=== PATIENT | female | born 1965 | race Caucasian/White ===

== ENCOUNTER 2017-09-02 16:42 | Emergency (ER) | payer OTHER ==
[2017-09-02 16:42] VITALS: BMI 23.6
[2017-09-02 16:57] VITALS: BP 104/65; PULSE 62; RESP 16; TEMP 98.3; O2SAT 100
[2017-09-02] MEDS ORDERED: Naproxen 500 MG TAB PO STA (17:26)
--- NOTE | 2017-09-02 17:41 | ED PDOC ---
HPI: General Adult Time Seen by Provider: 09/02/17 17:04 Chief Complaint (Nursing): Dental Pain Chief Complaint (Provider): Dental Pain History Per: Patient History/Exam Limitations: no limitations Onset/Duration Of Symptoms: Days Current Symptoms Are (Timing): Still Present Additional Complaint(s): 52 year old female presents to the emergency department with a complaint of an ulcer inside the lower mouth region with pain that radiates to her head for a couple of dates. Patient wears dentures and states she had experienced this in the past. Denies fever or chills. Dr. Jose VU Past Medical History Reviewed: Historical Data, Nursing Documentation Vital Signs: Last Vital Signs Temp 98.3 F 09/02/17 16:54 Pulse 62 09/02/17 16:54 Resp 16 09/02/17 16:54 BP 104/65 09/02/17 16:54 Pulse Ox 100 09/02/17 18:19 - Medical History PMH: No Chronic Diseases - Surgical History Surgical History: Cholecystectomy - Family History Family History: States: No Known Family Hx - Social History Current smoker - smoking cessation education provided: No Alcohol: None - Home Medications Home Medications: Ambulatory Orders Medication Instructions Recorded Cyclobenzaprine [Cyclobenzaprine 10 mg PO Q8 #15 tab 06/06/15 HCl] Naproxen [Naprosyn] 500 mg PO BID #20 tablet 06/06/15 - Allergies Allergies/Adverse Reactions: Allergies Allergy/AdvReac Type Severity Reaction Status Date / Time No Known Allergies Allergy Verified 06/06/15 14:44 Review of Systems ROS Statement: Except As Marked, All Systems Reviewed And Found Negative (As per HPI, otherwise negative) Constitutional: Negative for: Fever, Chills ENT: Positive for: Other (Ulcer to the mouth) Neurological: Positive for: Headache Physical Exam - Reviewed Nursing Documentation Reviewed: Yes Vital Signs Reviewed: Yes - Physical Exam Appears: Positive for: Well, Non-toxic, No Acute Distress Head Exam: Positive for: ATRAUMATIC, NORMAL INSPECTION, NORMOCEPHALIC Skin: Positive for: Normal Color, Warm, Dry Eye Exam: Positive for: Normal appearance, EOMI ENT: Positive for: Other (Ulcer noted to the inner lower gingiva) Respiratory: Negative for: Accessory Muscle Use, Respiratory Distress Neurologic/Psych: Positive for: Alert, Oriented (x3) - ECG O2 Sat by Pulse Oximetry: 100 (RA) Pulse Ox Interpretation: Normal Medical Decision Making Medical Decision Making: Time: 1739 Initial impression: Ulcer to the mouth, headache, and back pain Initial plan: Naproxen 500 mg PO Reevaluation Scribe Attestation: Documented by Ramonita Roman, acting as a scribe for Neelam Gottlieb PA-C. Provider Scribe Attestation: All medical record entries made by the Scribe were at my direction and personally dictated by me. I have reviewed the chart and agree that the record accurately reflects my personal performance of the history, physical exam, medical decision making, and the department course for this patient. I have also personally directed, reviewed, and agree with the discharge instructions and disposition. Disposition - Clinical Impression Clinical Impression: Oral ulcer - Patient ED Disposition Is Patient to be Admitted: No Counseled Patient/Family Regarding: Diagnosis, Need For Followup - Disposition Disposition: Routine/Home Disposition Time: 18:20 Condition: STABLE Instructions: Mouth Sores Forms: [facility] (Marshallese) Print Language: WOLOF
[2017-09-02] MEDS ORDERED: Naproxen 500 MG TAB PO ONE (17:58)
== END 2017-09-02 19:20 | disposition home or self-care (01) ==
LOC: H.ER 16:42
DX: K12.1 Other forms of stomatitis (principal)